=== PATIENT | female | born 1990 | race African-American/Black ===

== ENCOUNTER 2017-07-02 11:46 | Emergency (ER) | payer MEDICAID, OTHER ==
[~2017-07-02] VITALS: Ht 157.5 cm; Wt 54.4 kg
[2017-07-02] MEDS ORDERED: ONDANSETRON HCL 4 MG/2 ML VIAL ONE (12:04)
[2017-07-02] MEDS ORDERED: ONDANSETRON HCL 4 MG/2 ML VIAL IV ONE ×2 (12:30→15:00)
[2017-07-02 13:26] LABS: Basophils # (auto) 0.1 uL; Eosinophils # (auto) 0.1 uL; Hematocrit 39.7 % (36.0-46.0); Hemoglobin 13.5 g/dL (12.2-16.2); Lymphocytes # (auto) 0.5 uL; Lymphocytes % (auto) 6.1 % (10.0-50.0); Mean Corpuscular Hemoglobin 28.6 pg (28.0-32.0); Mean Corpuscular Volume 84.2 fL (80.0-100.0); Monocytes # (auto) 0.2 uL; Monocytes % (auto) 2.8 % (0.0-12.0); Neutrophils # (auto) 6.9 uL; Neutrophils % (auto) 89.1 % (37.0-80.0); Platelet Count (auto) 271 10^3/uL (140-450); Red Blood Cells 4.72 10^6/uL (4.0-5.20); Red Cell Distribution Width 15.6 % (11.8-14.3); White Blood Cell 7.8 10^3/uL (4.4-10.8)
[2017-07-02 13:39] LABS: Albumin 4.5 g/dL (3.4-5.0); BUN/Creatinine Ratio 11.1; Bilirubin, Total 0.6 mg/dL (0.2-1.0); Calcium 9.3 mg/dL (8.5-10.1); Potassium 3.2 mmol/L (3.5-5.1); Total Protein 8.8 g/dL (6.4-8.2)
[2017-07-02] MEDS ORDERED: PANTOPRAZOLE 40 MG/10 ML VIAL IV ONE (15:00)
[2017-07-02] MEDS ORDERED: SODIUM CHLORIDE 0.9% 1,000 ML IV ONE (15:00)
[2017-07-02 15:34] LABS: Amylase 122 U/L (25-115); Blood Alcohol < 3.0 mg/dL (0-5); Lipase 114 U/L (73-393)
[2017-07-02 17:00] VITALS: BP 114/79
[2017-07-02] MEDS ORDERED: POTASSIUM CHL 20 Meq TABLET PO ONE (17:45)
== END 2017-07-02 18:37 | disposition home or self-care (01) ==
LOC: EDBD 11:46 → ER 11:46
DX: K29.70 Gastritis, unspecified, without bleeding (principal); F10.10 Alcohol abuse, uncomplicated; F17.210 Nicotine dependence, cigarettes, uncomplicated; F12.10 Cannabis abuse, uncomplicated
CPT/HCPCS: 36415; 80053; 80320; 82150; 83690; 85025; 96361; 96374; 96375; 99285; J2405; J7030

== ENCOUNTER 2021-02-21 01:53 | Observation (INO) | payer MEDICAID ==
[~2021-02-21] VITALS: Ht 160 cm; Wt 74.4 kg
[2021-02-21 03:56] LABS: Amphetamine Screen, Urine NEGATIVE (NEGATIVE); Barbiturate Scree,Urine NEGATIVE (NEGATIVE); Benzodiazephine Screen, Urine NEGATIVE (NEGATIVE); Cannabinoid Screen, Urine NEGATIVE (NEGATIVE); Cocaine Screen, Urine NEGATIVE (NEGATIVE); Opiate Scree,Urine NEGATIVE (NEGATIVE); Phencyclidine Screen, Urine NEGATIVE (NEGATIVE)
== END 2021-02-21 04:40 | disposition home or self-care (01) ==
LOC: LDRP 01:53
PROVIDERS: ADMIT Obstetrics & Gynecology; ATTEND Obstetrics & Gynecology
DX: O36.8330 Maternal care for abnormalities of the fetal heart rate or rhythm, third trimester, not applicable or unspecified (principal); O62.9 Abnormality of forces of labor, unspecified; Z3A.38 38 weeks gestation of pregnancy
CPT/HCPCS: 59025; 76805; 80307; 81002; 84112; G0378; G0379; Q0114